=== PATIENT | male | born 2000 ===

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

== ENCOUNTER → 2020-05-15 16:42 | Outpatient (CLI) | payer OTHER, MEDICAID, SELFPAY ==
--- NOTE | 2020-05-15 16:44 | DI.RAD.S_ITS ---
PROCEDURE: XR FOOT RT MIN 3V INDICATIONS: metatarsal pain 2nd digit TECHNIQUE: 3 views of the foot were acquired. COMPARISON: None. FINDINGS: Bones: No fractures or dislocations. No suspicious bony lesions. Soft tissues: No tibiotalar joint effusion. Achilles tendon appears normal. IMPRESSION: No fracture or dislocation is noted. No finding to explain patient's symptoms. Dictated by: Issa Leon M.D. on 05/15/2020 at 17:58 Approved by: Issa Leon M.D. on 05/15/2020 at 17:59
--- NOTE | 2020-05-15 16:44 | DI.RAD.S_ITS ---
PROCEDURE: XR FOOT LT MIN 3V INDICATIONS: metatarsal pain 2nd digit TECHNIQUE: 3 views of the foot were acquired. COMPARISON: None. FINDINGS: Bones: No fractures or dislocations. No suspicious bony lesions. Soft tissues: No tibiotalar joint effusion. Achilles tendon appears normal. IMPRESSION: No fracture or dislocation is seen in left foot. No evidence of stress fracture. Dictated by: Issa Leon M.D. on 05/15/2020 at 17:46 Approved by: Issa Leon M.D. on 05/15/2020 at 17:58
== END ==
PROVIDERS: PCP Family Medicine; Referring Provider Family Medicine; Visit Provider Family Medicine
DX: M89.8X7 Other specified disorders of bone, ankle and foot (principal)
CPT/HCPCS: 73630